=== PATIENT | female | born 1985 | race Caucasian/White ===

== ENCOUNTER 2021-01-12 04:31 | Day surgery (SDC) | payer OTHER ==
[2021-01-08 11:03] VITALS: BMI 28.3
[2021-01-12] MEDS ORDERED: KETOROLAC TROMETHAMINE 30 MG/1 ML VIAL ONE (13:37)
[2021-01-12] MEDS ORDERED: LIDOCAINE HCL/PF 2% SDV 5ML VIAL ONE (13:37)
[2021-01-12] MEDS ORDERED: oxyCODONE HCL 5 MG TABLET PO PRN (13:39)
[2021-01-12] MEDS ORDERED: IBUPROFEN 400 MG TABLET (FP) PO PRN (13:39)
[2021-01-12] MEDS ORDERED: MIDAZOLAM HCL 2 MG/2 ML SINGLE DOSE VIAL ONE (13:39)
[2021-01-12] MEDS ORDERED: ACETAMINOPHEN 325 MG TABLET (FP) PO PRN (13:39)
[2021-01-12] MEDS ORDERED: PROPOFOL 20 ML ONE (13:40)
[2021-01-12] MEDS ORDERED: DEXMEDETOMIDINE HCL 200 MCG/2 ML IVPB ONE ×2 (15:06→16:06)
[2021-01-12 15:32] VITALS: TEMP 97.7
[2021-01-12 17:25] VITALS: BP 108/61; PULSE 57
== END 2021-01-12 17:25 | disposition home or self-care (01) ==
LOC: JASU-SURG 04:31
PROVIDERS: ATTEND Obstetrics & Gynecology
PROC: 0UDB7ZX Extraction of Endometrium, Via Natural or Artificial Opening, Diagnostic (ICD-10-PCS; principal; 2021-01-12 11:30)
PROC: 0UBC7ZX Excision of Cervix, Via Natural or Artificial Opening, Diagnostic (ICD-10-PCS; 2021-01-12 11:30)
DX: D06.7 Carcinoma in situ of other parts of cervix (principal)
CPT/HCPCS: 81025; 88305-TC; 88307-TC; 94760

== ENCOUNTER 2021-05-04 04:18 | Day surgery (SDC) | payer OTHER ==
[2021-05-01 11:01] VITALS: BMI 29.5
[2021-05-04] MEDS ORDERED: MIDAZOLAM HCL 2 MG/2 ML SINGLE DOSE VIAL ONE ×2 (07:15)
[2021-05-04] MEDS ORDERED: BUPIVACAINE HCL/PF 0.5% (5MG/ML) 10 ML VIAL ONE ×2 (07:17→10:58)
[2021-05-04] MEDS ORDERED: BUPIVACAINE LIPOSOME/PF (EXPAREL) 266 MG/20 ML VIAL ONE (07:17)
[2021-05-04] MEDS ORDERED: DEXAMETHASONE SOD PHOSPHATE 4 MG/1 ML VIAL ONE (07:21)
[2021-05-04] MEDS ORDERED: fentaNYL CITRATE 250 MCG/5 ML VIAL ONE (07:21)
[2021-05-04] MEDS ORDERED: LIDOCAINE HCL/PF 2% SDV 5ML VIAL ONE (07:21)
[2021-05-04] MEDS ORDERED: SUCCINYLCHOLINE CHLORIDE 200 MG/10 ML SYRINGE ONE (07:22)
[2021-05-04] MEDS ORDERED: ROCURONIUM BROMIDE 50 MG/5 ML SYRINGE ONE ×2 (07:22→09:44)
[2021-05-04] MEDS ORDERED: PROPOFOL 20 ML ONE (07:22)
[2021-05-04] MEDS ORDERED: ceFAZolin SODIUM 1 GM VIAL ONE (08:54)
[2021-05-04] MEDS ORDERED: ceFAZolin SODIUM 1 GM VIAL IVPB ONE (08:55)
[2021-05-04] MEDS ORDERED: METHYLENE BLUE 50 MG/10 ML AMPUL ONE (10:23)
[2021-05-04] MEDS ORDERED: GLYCOPYRROLATE 0.2 MG/1 ML VIAL ONE (10:56)
[2021-05-04] MEDS ORDERED: NEOSTIGMINE METHYLSULFATE 0.5 MG/ML - 10 ML MDV ONE (10:56)
[2021-05-04] MEDS ORDERED: KETOROLAC TROMETHAMINE 30 MG/1 ML VIAL ONE (10:57)
[2021-05-04] MEDS ORDERED: BUPIVACAINE HCL/PF 0.5% (5MG/ML) 10 ML VIAL IJ ONE (11:03)
[2021-05-04] MEDS ORDERED: IBUPROFEN 600 MG TABLET (FP) PO PRN ×2 (11:12→11:51)
[2021-05-04] MEDS ORDERED: ACETAMINOPHEN 325 MG TABLET (FP) PO PRN (11:12)
[2021-05-04] MEDS ORDERED: oxyCODONE HCL 5 MG TABLET PO PRN ×2 (11:12→11:51)
[2021-05-04] MEDS ORDERED: ACETAMINOPHEN 1000 MG/100 ML BAG IVPB PRN (11:32)
[2021-05-04] MEDS ORDERED: ACETAMINOPHEN 1000 MG/100 ML BAG IVPB ONE (12:15)
[2021-05-04] MEDS ORDERED: ONDANSETRON 4 MG/2 ML VIAL IVPUSH PRN (12:48)
[2021-05-04] MEDS: LACTATED RINGERS SOLUTION 1,000 ML IV SCH ×2 (13:10→20:45)
[2021-05-04] MEDS: ACETAMINOPHEN 1000 MG/100 ML BAG IVPB PRN (20:46)
[2021-05-05] MEDS: ACETAMINOPHEN 1000 MG/100 ML BAG IVPB PRN (02:15)
[2021-05-05 08:31] LABS: HEMATOCRIT 31.6 % (32.4-45.2); HEMOGLOBIN 10.6 GM/dL (10.7-15.3); MCH 30.7 pg (25.7-33.7); MCHC 33.5 g/dl (32.0-36.0); MEAN CELL VOLUME 91.7 fl (80-96); MEAN PLT VOLUME 8.1 fl (7.5-11.1); PLATELET COUNT 265 10^3/uL (134-434); RBC 3.45 M/mm3 (3.60-5.2); RDW 13.9 % (11.6-15.6); WHITE BLOOD COUNT 18.8 K/mm3 (4.0-10.0)
[2021-05-05 08:52] LABS: CREATININE 0.6 mg/dL (0.55-1.3)
[2021-05-05] MEDS ORDERED: IBUPROFEN 400 MG TABLET (FP) PO PRN (09:16)
[2021-05-05] MEDS ORDERED: IBUPROFEN 600 MG TABLET (FP) PO PRN ×2 (09:18→15:16)
[2021-05-05 10:15] VITALS: BP 95/56; PULSE 69; TEMP 98.6
== END 2021-05-05 12:05 | disposition home or self-care (01) ==
LOC: UNDOADMIN 04:18 → JASUSAT 04:18 → J2C 04:18 → EDSTATUS 08:00 → J3W 13:42 → JASUSAT 05-05 12:05
PROVIDERS: ATTEND Obstetrics & Gynecology
PROC: 0UT74ZZ Resection of Bilateral Fallopian Tubes, Percutaneous Endoscopic Approach (ICD-10-PCS; 2021-05-04)
PROC: 0UT94ZZ Resection of Uterus, Percutaneous Endoscopic Approach (ICD-10-PCS; principal; 2021-05-04 08:00)
DX: D06.0 Carcinoma in situ of endocervix (principal)
CPT/HCPCS: 36415; 81025; 82565; 85027; 86850; 86900; 86901; 88309-TC; 94010; 94760; J0131; Q9968

== ENCOUNTER 2023-01-07 12:33 | Emergency (ER) | payer OTHER ==
[2023-01-07 12:49] VITALS: BP 143/83; PULSE 87; RESP 16; TEMP 98.1; BMI 26.5
[2023-01-07] MEDS ORDERED: DIPHTH,PERTUSS(ACELL),TET 0.5 ML DISP.SYRIN IM ONE ×2 (13:19→13:27)
== END 2023-01-07 14:17 | disposition home or self-care (01) ==
LOC: JERFT 12:33
PROC: 2W3HX1Z Immobilization of Left Thumb using Splint (ICD-10-PCS; principal; 2023-01-07)
PROC: 3E0234Z Introduction of Serum, Toxoid and Vaccine into Muscle, Percutaneous Approach (ICD-10-PCS; 2023-01-07)
DX: M79.645 Pain in left finger(s) (principal); S61.102A Unspecified open wound of left thumb with damage to nail, initial encounter; W23.1XXA Caught, crushed, jammed, or pinched between stationary objects, initial encounter
CPT/HCPCS: 90715; 99282-25